=== PATIENT | female | born 1980 | race Caucasian/White ===

== ENCOUNTER 2019-09-22 05:50 | Emergency (ER) | payer BC, SELFPAY ==
[2019-09-22 05:55] VITALS: BP 119/76; PULSE 83; RESP 16; TEMP 36.4; O2SAT 99; BMI 29.2
--- NOTE | 2019-09-22 05:59 | XR_ITS ---
WS: [id number] PORTABLE CHEST HISTORY: loss of consciousness COMPARISON: None available. Lungs are clear and well expanded. No pleural effusion or pneumothorax. Cardiac size: Normal. Mediastinum/Aorta: Normal mediastinum. No osseous abnormality seen. XR/XR chest 1V portable [id number] IMPRESSION: Unremarkable portable chest.
--- NOTE | 2019-09-22 05:59 | W.ED.FALL ---
HPI - Fall General: Chief Complaint: Syncope Stated Complaint: PASSED OUT, HIT HEAD Time Seen by Provider: 09/22/19 05:51 History of Present Illness: HPI Narrative: 39-year-old female got out of bed this morning she felt as if her legs were weak and numb from positional effect. She waited a bit they seem to get a little bit better than it she got up and moved around while she was walking they seem to give out from underneath her she fell and hit her head she has a shallow abrasion-like laceration on the left supraorbital ridge. She vomited once after the fall. No further symptoms. MD complaint: fall Onset (ago): hour(s) (1) Fall from: standing Fall witnessed: no Place fall occurred: home Loss of consciousness: Yes Prolonged down time: no Symptoms prior to fall: dizziness Context: tripped/slipped Location of injury: head Severity: mild Associated symptoms-after fall: Reports lightheadedness; Denies abdominal pain or chest pain Review of Systems Const: Denies: fever, chills, body aches, change in appetite, fatigue or malaise ENMT: Denies: throat pain, ear pain, nasal discharge or nasal congestion Card: Reports: lightheadedness; Denies: chest pain, edema, shortness of breath on exertion or shortness of breath when lying down Resp: Denies: shortness of breath, productive cough or non-productive cough GI: Denies: abdominal pain, nausea, vomiting, vomiting blood, coffee grounds in vomit, diarrhea, constipation, bloating, blood in stool or black tarry stool : Denies: flank pain, difficulty urinating, painful urination, urinary frequency or urinary urgency Skin/Breast: Denies: rash or itching Neuro: Reports: numbness in extremities (resolved now) and weakness in extremities (resolved now) PFSH ED PFSH: Statuses (acute, chronic, etc) shown below reflect problem list status as previously entered and may not be historically accurate Social History Smoking and tobacco status: never smoked Physical Exam Const: COMMON NORMALS: no apparent distress GENERAL APPEARANCE: cooperative and comfortable ORIENTATION/CONSCIOUSNESS: Yes awake, Yes oriented to person, Yes oriented to place and Yes oriented to time HENMT: COMMON NORMALS: normocephalic, hearing grossly normal bilaterally, external ears normal, EAC's normal, TM's normal bilaterally, nasal mucous membranes and turbinates normal, moist oral mucous membranes and oropharynx normal HEAD & SCALP: normocephalic HEAD IMAGES: 1. laceration partial thickness NOSE: nasal mucous membranes and turbinates normal EXTERNAL EAR: Yes external ears normal EXTERNAL AUDITORY CANAL: EAC's normal TYMPANIC MEMBRANE: TM's normal bilaterally Eye: COMMON NORMALS: PERRL, EOMs intact bilaterally, conjunctivae normal and no scleral icterus CONJUNCTIVA: Yes conjunctivae normal PUPIL: Yes PERRL Neck/C-Spine: COMMON NORMALS: full ROM, no lymphadenopathy, supple and no JVD Lymph: LYMPHATIC: no lymphadenopathy noted and no lymphedema noted Resp: COMMON NORMALS: normal respiratory effort, no retractions, no use of accessory muscles and clear to auscultation bilaterally AUSCULTATION: clear to auscultation bilaterally Cardio: COMMON NORMALS: no JVD, regular rate, regular rhythm and no murmurs RATE: regular rate RHYTHM: regular rhythm Extremity: COMMON NORMALS: normal to inspection, normal capillary refill, no clubbing, cyanosis or edema, no calf tenderness and no pedal edema Neuro: SENSORIUM/ORIENTATION: Yes oriented to person, Yes oriented to place and Yes oriented to time Skin: COMMON NORMALS: no rashes or lesions noted GENERAL SKIN EXAM: no rashes or lesions noted Course ED course: Patient doing well no focal neurologic deficits. Laceration repaired by PA see the note. Discharge home with case management get her primary care doctor follow-up in 5 to 7 days for suture removal Vital Signs: Vital signs: Vital Signs Temperature 97.5 F L 09/22/19 05:55 Pulse Rate 75 09/22/19 08:05 Respiratory Rate 17 09/22/19 08:05 Blood Pressure 100/59 09/22/19 08:05 Pulse Oximetry 97 09/22/19 08:05 MDM - Fall Lab Data: Labs: Lab Results 09/22/19 09/22/19 09/22/19 Range/Units 06:00 06:27 06:27 WBC 10.5 H (4.0-10.0) 10^3/ uL RBC 4.55 (4.1-5.3) 10^6/u L Hgb 13.3 (11.5-15.3) g/dL Hct 41.6 (37.0-47.0) % MCV 91.4 (81-99) fL MCH 29.2 (28.0-34.0) pg MCHC 32.0 (30.0-36.0) g/dL RDW 12.4 (12.1-15.1) % Plt Count 161 (130-400) 10^3/c mm MPV 13.3 H (7.4-10.4) fL Neut % (Auto) 80.7 % Lymph % (Auto) 12.4 % [place] % (Auto) 5.5 % Eos % (Auto) 0.7 % Baso % (Auto) 0.3 % Neut # (Auto) 8.5 H (1.8-7.7) 10^3/u L Lymph # (Auto) 1.3 (0.8-4.8) 10^3/u L [place] # (Auto) 0.6 (0.2-0.9) 10^3/u L Eos # (Auto) 0.1 (0.0-0.8) 10^3/u L Baso # (Auto) 0.0 (0.0-0.1) 10^3/u L Nucleated RBC % (a uto) 0 % Nucleated RBCs # 0.0 /100WBC Sodium 141 (136-145) mmol/L Potassium 4.3 (3.5-5.1) mmol/L Chloride 106 (98-107) mmol/L Carbon Dioxide 23 (22-29) mmol/L Anion Gap 16.3 (5-19) BUN 12 (6-20) mg/dL Creatinine 0.9 (0.5-0.9) mg/dL GFR Calculation 69.7 L (90-130) mL/min Glucose 114 H (74-109) mg/dL Calcium 9.3 (8.6-10.0) mg/Dl Total Bilirubin 0.2 (0.15-1.2) mg/dL AST 21 (0-32) U/L ALT 12 (0-33) U/L Alkaline Phosphata se 68 (35-105) IU/L Total Protein 7.3 (6.6-8.7) g/dL Albumin 4.5 (3.5-5.2) g/dL Globulin 2.8 (1.3-4.6) g/dL Urine Color Yellow (Yellow) Urine Appearance Clear (CLEAR) Urine pH 5.0 (5-7) Ur Specific Gravit y 1.030 (1.005-1.030) Urine Protein Neg (Negative) Urine Glucose (UA) Norm (Normal) Urine Ketones 1+ H (Negative) Urine Occult Blood Neg (Negative) Urine Nitrate Negative (Negative) Urine Bilirubin Neg (NEGATIVE) Urine Urobilinogen Norm (Negative) mg/dL Ur Leukocyte Rosalba ase Trace H (Negative) Urine RBC None (0-2) /hpf Urine WBC 0-4 H (0-5) /hpf Ur Squamous Epith Cells None (0-5) Amorphous Sediment 4+ Urine Bacteria 3+ H (NONE) Imaging Data^: CT Head: Radiologist's impression: PROCEDURE INFORMATION: Exam: CT Head Without Contrast Exam date and time: 09/22/2019 7:30 AM Age: 39 years old Clinical indication: Injury or trauma; Patient HX: Syncope with fall at home this a. M. Bruising to left orbit with laceration to left eyebrow that has been sutured. ; Additional info: Loc after fall TECHNIQUE: Imaging protocol: Computed tomography of the head without contrast. Total DLP: 765.49 mGy-cm Radiation optimization: All CT scans at this facility use at least one of these dose optimization techniques: automated exposure control; mA and/or kV adjustment per patient size (includes targeted exams where dose is matched to clinical indication); or iterative reconstruction. COMPARISON: No relevant prior studies available. FINDINGS: Brain: Normal. No hemorrhage. Unremarkable white matter. No mass effect. Ventricles: Normal. No ventriculomegaly. Bones/joints: Unremarkable. No acute fracture. Sinuses: Visualized sinuses are unremarkable. No fluid levels. Mastoid air cells: Visualized mastoid air cells are well aerated. Orbits: Mild LEFT preseptal periorbital soft tissue swelling. Soft tissues: Unremarkable. CT/CT head wo con* [id number] IMPRESSION: No acute intracranial injury identified. EKG Data^: EKG 1: EKG interpretation date: 09/22/19 EKG interpretation time: 06:25 Interpretation: NSR rate - 69, normal NE and QT segments no ST segment changes, no acute ischemia Discharge Plan Discharge Patient Disposition: Home, Self-Care Clinical Impression: Fall, Laceration of eyebrow and forehead Condition: Stable Discharge Orders: Discharge Order (Routine); Ordered 09/22/19 Ordered By: Ge Lagunas Discharge Diet: Usual diet Discharge Activity: Resume usual activity Activity Restrictions/Additional Instructions: Follow up for wound care and suture removal in 7 days at one of the local walkin clinics. Discharge Date/Time: 09/22/19 08:06 Coding Level of Care Code ED [employer] [place] Technician for Inocencia Santos Exam Problem Focused NIH stroke score NIHSS Level Of Consciousness - 1a: 0 Level Of Consciousness Questions - 1b: Both Correct Level Of Consciousness Commands - 1c: Both Correct Best Gaze - 2: Normal Visual Darby - 3: No Visual Loss Facial Palsy - 4: Normal Motor Arm Right - 5: No Drift Motor Arm Left - 5: No Drift Motor Leg Right - 6: No Drift Motor Leg Left - 6: No Drift Limb Ataxia - 7: Absent Sensory - 8: Normal Best Language - 9: No Aphasia Dysarthia - 10: Normal Extinction And Inattention - 11: 0 Score Total Score: 0
--- NOTE | 2019-09-22 06:05 | ECG_ITS ---
Measurements Intervals [place] Rate: 69 P: 62 TX: 149 QRS: 57 QRSD: 85 T: 30 QT: 372 QTc: 400 SINUS RHYTHM WITH SINUS ARRHYTHMIA No previous ECG available for comparison Electronically Signed On 09-22-2019 19:25:43 PRODUCTIVITY ENGINEER by Yolanda Zavala M.D. [id number]
[2019-09-22 06:33] VITALS: BP 101/66; BP 109/71; BP 110/76
[2019-09-22 06:33] LABS: Basophils % 0.3 %; Eosinophils # 0.1 10^3/uL (0.0-0.8); Eosinophils % 0.7 %; Hematocrit 41.6 % (37.0-47.0); Hemoglobin 13.3 g/dL (11.5-15.3); Lymphocytes # 1.3 10^3/uL (0.8-4.8); Lymphocytes % 12.4 %; Mean Corpuscular Hemoglobin 29.2 pg (28.0-34.0); Mean Corpuscular Volume 91.4 fL (81-99); Mean Platelet Volume 13.3 fL (7.4-10.4); Monocytes # 0.6 10^3/uL (0.2-0.9); Monocytes % 5.5 %; Neutrophils # 8.5 10^3/uL (1.8-7.7); Neutrophils % 80.7 %; Nucleated Red Blood Cells % 0 %; Platelet Count 161 10^3/cmm (130-400); Red Blood Count 4.55 10^6/uL (4.1-5.3); Red Cell Distribution Width 12.4 % (12.1-15.1); White Blood Count 10.5 10^3/uL (4.0-10.0)
[2019-09-22] MEDS: sodium chloride 0.9% 1,000 ML 999 ML IV (06:42)
[2019-09-22 06:48] LABS: Alanine Aminotransferase 12 U/L (0-33); Albumin Level 4.5 g/dL (3.5-5.2); Alkaline Phosphatase 68 IU/L (35-105); Anion Gap 16.3 (5-19); Blood Urea Nitrogen 12 mg/dL (6-20); Calcium 9.3 mg/Dl (8.6-10.0); Carbon Dioxide 23 mmol/L (22-29); Chloride 106 mmol/L (98-107); Globulin 2.8 g/dL (1.3-4.6); Glomerular Filtration Rate 69.7 mL/min (90-130); Glucose 114 mg/dL (74-109); Potassium 4.3 mmol/L (3.5-5.1); Sodium 141 mmol/L (136-145); Total Bilirubin 0.2 mg/dL (0.15-1.2); Total Protein 7.3 g/dL (6.6-8.7)
[2019-09-22 06:50] LABS: Slide Review Slide Review Perform
[2019-09-22 06:53] LABS: Add Urine Microscopic? YES; Bilirubin Urine Neg (NEGATIVE); Blood Urine Neg (Negative); Glucose Urine UA Norm (Normal); Ketones Urine 1+ (Negative); Leukocyte Esterase Urine Trace (Negative); Nitrate Urine Negative (Negative); Protein Urine Neg (Negative); Urine Appearance Clear (CLEAR); Urine Color Yellow (Yellow); Urobilinogen Urine Norm (Negative)
[2019-09-22 06:58] LABS: Aspartate Amino Transferase 21 U/L (0-32)
[2019-09-22 07:03] LABS: Add Urine Culture? No; Amorphous Sediment Urine 4+; Bacteria Urine 3+; WBC Urine 0-4 /hpf (0-5)
--- NOTE | 2019-09-22 07:28 | CTR_ITS ---
PROCEDURE INFORMATION: Exam: CT Head Without Contrast Exam date and time: 09/22/2019 7:30 AM Age: 39 years old Clinical indication: Injury or trauma; Patient HX: Syncope with fall at home this a. M. Bruising to left orbit with laceration to left eyebrow that has been sutured. ; Additional info: Loc after fall TECHNIQUE: Imaging protocol: Computed tomography of the head without contrast. Total DLP: 765.49 mGy-cm Radiation optimization: All CT scans at this facility use at least one of these dose optimization techniques: automated exposure control; mA and/or kV adjustment per patient size (includes targeted exams where dose is matched to clinical indication); or iterative reconstruction. COMPARISON: No relevant prior studies available. FINDINGS: Brain: Normal. No hemorrhage. Unremarkable white matter. No mass effect. Ventricles: Normal. No ventriculomegaly. Bones/joints: Unremarkable. No acute fracture. Sinuses: Visualized sinuses are unremarkable. No fluid levels. Mastoid air cells: Visualized mastoid air cells are well aerated. Orbits: Mild LEFT preseptal periorbital soft tissue swelling. Soft tissues: Unremarkable. CT/CT head wo con* [id number] IMPRESSION: No acute intracranial injury identified. Radiation Dose CTDIVOL = (mGy): DLP = 765.49 (mGy-cm)
--- NOTE | 2019-09-22 07:38 | ED_ITS ---
HPI - Syncope General: Chief Complaint: Syncope Stated Complaint: PASSED OUT, HIT HEAD Time Seen by Provider: 09/22/19 05:51 [facility] PFSH: Statuses (acute, chronic, etc) shown below reflect problem list status as previously entered and may not be historically accurate Social History Smoking and tobacco status: never smoked Procedures Laceration Laceration 1: Site: face (left brow) Side (If applicable): left Size (cm): 3.5 Description: linear Depth: simple, single layer Local Anesthetic: lidocaine 1% and with epi Amount of anesthesia used (mL): 2 Pre-repair: wound explored and irrigated extensively Skin layer closed with: vicryl Size (cm): 6-0 Number of sutures: 7 Technique: simple, interrupted Subcutaneous layer closed with: other (patient tolerated procedure well, cooperative) Course Vital Signs: Vital signs: Vital Signs Temperature 97.5 F L 09/22/19 05:55 Pulse Rate 83 09/22/19 05:55 Respiratory Rate 16 09/22/19 05:55 Blood Pressure 101/66 09/22/19 06:33 Pulse Oximetry 99 09/22/19 05:55 MDM - Syncope Lab Data: Labs: Lab Results 09/22/19 09/22/19 09/22/19 Range/Units 06:00 06:27 06:27 WBC 10.5 H (4.0-10.0) 10^3/ uL RBC 4.55 (4.1-5.3) 10^6/u L Hgb 13.3 (11.5-15.3) g/dL Hct 41.6 (37.0-47.0) % MCV 91.4 (81-99) fL MCH 29.2 (28.0-34.0) pg MCHC 32.0 (30.0-36.0) g/dL RDW 12.4 (12.1-15.1) % Plt Count 161 (130-400) 10^3/c mm MPV 13.3 H (7.4-10.4) fL Neut % (Auto) 80.7 % Lymph % (Auto) 12.4 % [place] % (Auto) 5.5 % Eos % (Auto) 0.7 % Baso % (Auto) 0.3 % Neut # (Auto) 8.5 H (1.8-7.7) 10^3/u L Lymph # (Auto) 1.3 (0.8-4.8) 10^3/u L [place] # (Auto) 0.6 (0.2-0.9) 10^3/u L Eos # (Auto) 0.1 (0.0-0.8) 10^3/u L Baso # (Auto) 0.0 (0.0-0.1) 10^3/u L Nucleated RBC % (a uto) 0 % Nucleated RBCs # 0.0 /100WBC Sodium 141 (136-145) mmol/L Potassium 4.3 (3.5-5.1) mmol/L Chloride 106 (98-107) mmol/L Carbon Dioxide 23 (22-29) mmol/L Anion Gap 16.3 (5-19) BUN 12 (6-20) mg/dL Creatinine 0.9 (0.5-0.9) mg/dL GFR Calculation 69.7 L (90-130) mL/min Glucose 114 H (74-109) mg/dL Calcium 9.3 (8.6-10.0) mg/Dl Total Bilirubin 0.2 (0.15-1.2) mg/dL AST 21 (0-32) U/L ALT 12 (0-33) U/L Alkaline Phosphata se 68 (35-105) IU/L Total Protein 7.3 (6.6-8.7) g/dL Albumin 4.5 (3.5-5.2) g/dL Globulin 2.8 (1.3-4.6) g/dL Urine Color Yellow (Yellow) Urine Appearance Clear (CLEAR) Urine pH 5.0 (5-7) Ur Specific Gravit y 1.030 (1.005-1.030) Urine Protein Neg (Negative) Urine Glucose (UA) Norm (Normal) Urine Ketones 1+ H (Negative) Urine Occult Blood Neg (Negative) Urine Nitrate Negative (Negative) Urine Bilirubin Neg (NEGATIVE) Urine Urobilinogen Norm (Negative) mg/dL Ur Leukocyte Rosalba ase Trace H (Negative) Urine RBC None (0-2) /hpf Urine WBC 0-4 H (0-5) /hpf Ur Squamous Epith Cells None (0-5) Amorphous Sediment 4+ Urine Bacteria 3+ H (NONE) Discharge Plan Discharge Patient Disposition: Home, Self-Care Clinical Impression: Fall, Laceration of eyebrow and forehead Condition: Stable Discharge Orders: Discharge Order (Routine); Ordered 09/22/19 Ordered By: Ge Lagunas Discharge Diet: Usual diet Discharge Activity: Resume usual activity Activity Restrictions/Additional Instructions: Follow up for wound care and suture removal in 7 days at one of the local walkin clinics. Coding Level of Care Code ED Pollution Control Chemist for Inocencia Santos
[2019-09-22 08:05] VITALS: BP 100/59; PULSE 75; RESP 17; O2SAT 97
--- NOTE | 2019-09-23 13:03 | DCPLANNER ---
manager new product had message to speak with patient about getting established with a primary care physician. manager new product called patient, unable to speak with patient at this time, a voicemail was left for patient to return medical case worker phone call.
== END 2019-09-22 08:06 | disposition home or self-care (01) ==
PROVIDERS: Emergency Provider Family Medicine
DX: S01.112A Laceration without foreign body of left eyelid and periocular area, initial encounter (principal); S01.81XA Laceration without foreign body of other part of head, initial encounter; W19.XXXA Unspecified fall, initial encounter; Y92.009 Unspecified place in unspecified non-institutional (private) residence as the place of occurrence of the external cause
CPT/HCPCS: 12013; 36415; 70450; 71045; 80053; 81003; 85025; 93005; 96360; 99283; A9270; J7030

== ENCOUNTER → 2020-12-01 11:04 | Outpatient (BNVA) | payer OTHER, SELFPAY | PROVIDERS: Visit Provider Nurse Practitioner Women's Health | DX: Z01.419 Encounter for gynecological examination (general) (routine) without abnormal findings (principal); Z12.39 Encounter for other screening for malignant neoplasm of breast | CPT/HCPCS: 88175 ==

== ENCOUNTER 2020-12-14 15:10 | Outpatient (CLI) | payer OTHER, SELFPAY ==
--- NOTE | 2020-12-14 15:30 | MM_ITS ---
WS: [id number] BILATERAL DIGITAL SCREENING MAMMOGRAPHY WITH CAD CLINICAL INFORMATION: Z12.39 - Encounter for other screening for malignant neoplasm of breast HISTORY: Screening mammogram. No current complaints. COMPARISON: None. TECHNIQUE: Bilateral CC and MLO views. FINDINGS: Scattered fibroglandular densities bilaterally. No suspicious focal mass, asymmetry, calcifications, or architectural distortion. No evidence of malignancy. MM/[place] [id number] IMPRESSION: BI-RADS: 1-Negative FOLLOW UP: 1 Year Follow-up Recommend return to annual screening mammography.
== END 2020-12-14 15:11 | disposition home or self-care (01) ==
LOC: RADSHAW 15:12
PROVIDERS: Visit Provider Nurse Practitioner Women's Health
DX: Z12.31 Encounter for screening mammogram for malignant neoplasm of breast (principal)
CPT/HCPCS: 77067

== ENCOUNTER 2021-04-12 12:19 | Emergency (ER) | payer OTHER, SELFPAY ==
[2021-04-12 12:40] VITALS: BP 127/77; PULSE 87; RESP 14; TEMP 36.8; O2SAT 97; BMI 30.1
[2021-04-12 15:56] VITALS: BP 120/78; PULSE 79; RESP 16; O2SAT 99
--- NOTE | 2021-04-12 16:15 | XR_ITS ---
WS: [id number] Portable AP upright chest, 04/12/2021 Clinical Data: dyspnea/cough Comparison: Portable chest, 09/22/2019. Findings: No nodules, masses or effusions are seen. The heart is normal. The pulmonary vascularity is not increased. No pneumonia or pneumothorax is seen. XR/XR chest 1V portable [id number] Impression: Negative chest.
--- NOTE | 2021-04-12 16:15 | ECG_ITS ---
[facility] Test Date: 2021-04-12 Pat Name: Sallie Watkins Department: Room: Gender: Female Site Lead: : 1980 Requested By: Ge Rucker Order Number: [id number] Reading MD: KALEB CHILDERS Measurements Intervals [place] Rate: 67 P: 61 MN: 151 QRS: 68 QRSD: 80 T: 50 QT: 382 QTc: 405 Interpretive Statements SINUS RHYTHM WITH MARKED SINUS ARRHYTHMIA NONSPECIFIC T-WAVE ABNORMALITY Compared to ECG 09/22/2019 06:25:12 T-wave abnormality now present Electronically Signed On 04-12-2021 22:31:41 CDT by KALEB CHILDERS [id number]
--- NOTE | 2021-04-12 16:16 | CTR_ITS ---
PROCEDURE INFORMATION: Exam: CT Head Without Contrast Exam date and time: 04/12/2021 4:16 PM Age: 40 years old Clinical indication: Pain; Dizziness and syncope and collapse; Headache; Additional info: Fall loss consciousness TECHNIQUE: Imaging protocol: Computed tomography of the head without contrast. Radiation optimization: All CT scans at this facility use at least one of these dose optimization techniques: automated exposure control; mA and/or kV adjustment per patient size (includes targeted exams where dose is matched to clinical indication); or iterative reconstruction. COMPARISON: CT head wo con* [id number] 09/22/2019 7:56 AM RADIATION DOSE METRICS: Total DLP (mGy-cm): 879.67 FINDINGS: Brain: Normal. No hemorrhage. Unremarkable white matter. No mass effect. Cerebral ventricles: No ventriculomegaly. Paranasal sinuses: Visualized sinuses are unremarkable. No fluid levels. Mastoid air cells: Visualized mastoid air cells are well aerated. Bones/joints: Unremarkable. No acute fracture. Soft tissues: Unremarkable. CT/CT head wo con* [id number] IMPRESSION: No acute intracranial abnormality. Radiation Dose CTDIVOL = (mGy): DLP = 879.67 (mGy-cm)
--- NOTE | 2021-04-12 16:16 | W.ED.SYNCOPE ---
HPI - Syncope General: Chief Complaint: Syncope Stated Complaint: Lightheaded, Passed out this morning Time Seen by Provider: 04/12/21 16:03 History of Present Illness: HPI narrative: 40-year-old female presents emergency room complaining of loss of consciousness. Early's morning around 3 AM she woke up she had some mild positional ischemia of her right leg she sat up at the bedside to reestablish circulation it was numb and tingling she went to stand and evidently passed out she said the neck she recalls was she was on the floor she does not recall falling or getting bad up back up she was somewhat lightheaded. She denies any chest pain or shortness of breath she has had episodes like this in the past usually associated with her. She has not had a full medical work-up for them. She has no known history of seizures. She has no history of coronary artery disease she is not diabetic. Patient has had similar episodes in the past. MD complaint: loss of consciousness -: second(s) Prodromal symptoms: lightheaded Context: getting out of bed Injuries sustained associated with event: none Associated symptoms: Deny abdominal pain, chest pain, fever(s), headache(s), lightheadedness, nausea, short of breath, vertigo or weakness History: previous syncopal episode Treatments prior to arrival: none Review of Systems Const: Denies: fever(s) ENMT: Denies: throat pain, ear or mastoid pain, nasal discharge or nasal congestion Card: Denies: chest pain or lightheadedness Resp: Denies: dyspnea, productive cough or non-productive cough GI: Denies: abdominal pain or nausea : Denies: flank pain, difficulty voiding, dysuria, urinary frequency or urinary urgency Skin/Breast: Denies: rash or pruritus Neuro: Denies: headache(s) or vertigo PFSH ED PFSH: Medical History No pertinent past medical history neghx: htn,dm,thyroid,dvt/pe PCP: None Surgical History Hx of wisdom tooth extraction at age 19 Family History Mother Hypertension Thyroid disease Father Hypertension Brother Hypertension Grandmother Colon cancer Maternal--- dx age 70's Paternal--dx age 63 Family/Other Ovarian cancer Paternal Aunt--dx age late 50's Denies family history of Diabetes Hypercholesteremia Breast cancer Uterine cancer Stroke Social History Smoking and tobacco status: never smoked Second hand smoke exposure: No Alcohol intake: never Desire information about alcohol rehabilitation?: No Desire information about substance/drug rehabilitation?: No Female Reproductive History: Date of last menstrual period: 04/07/21 Physical Exam Const: COMMON NORMALS: no acute distress GENERAL APPEARANCE: cooperative and comfortable ORIENTATION/CONSCIOUSNESS: Yes awake, Yes oriented to person, Yes oriented to place and Yes oriented to time HENMT: COMMON NORMALS: normocephalic, atraumatic, hearing grossly normal bilaterally and external ears normal HEAD & SCALP: normocephalic and atraumatic EXTERNAL EAR: Yes external ears normal Eye: COMMON NORMALS: Equal, round and reactive pupils present, EOMs intact bilaterally, conjunctivae normal and no scleral icterus CONJUNCTIVA: Yes conjunctivae normal PUPIL: Yes Equal, round and reactive pupils present Neck/C-Spine: COMMON NORMALS: full ROM, no lymphadenopathy, supple and no JVD Lymph: LYMPHATIC: no lymphadenopathy noted and no lymphedema noted Resp: COMMON NORMALS: normal respiratory effort, No retractions, No use of accessory muscles and clear to auscultation bilaterally AUSCULTATION: clear to auscultation bilaterally Cardio: COMMON NORMALS: no JVD, regular rate, regular rhythm and No murmurs present (Cardio) RATE: regular rate RHYTHM: regular rhythm GI: COMMON NORMALS: Soft to palpation and No hepatosplenomegaly present AUSCULTATION: Yes normoactive bowel sounds PALPATION: Yes Soft to palpation, No Tenderness to palpation present (GI), No Guarding due to palpation present (GI) and Yes No hepatosplenomegaly present Extremity: COMMON NORMALS: normal to inspection, capillary refill normal, no clubbing, cyanosis or edema, no calf tenderness and no pedal edema Neuro: SENSORIUM/ORIENTATION: Yes oriented to person, Yes oriented to place and Yes oriented to time Skin: COMMON NORMALS: no rashes or lesions noted GENERAL SKIN EXAM: no rashes or lesions noted Course Vital Signs: Vital signs: Vital Signs Temperature 98.2 F 04/12/21 12:40 Pulse Rate 71 04/12/21 18:10 Respiratory Rate 16 04/12/21 18:10 Blood Pressure 101/65 04/12/21 18:10 Pulse Oximetry 100 04/12/21 18:10 MDM - Syncope MDM Narrative: Medical decision making narrative: Patient did not have any postictal-like symptoms does not sound that she had a seizure sounds more like a vasovagal or orthostatic event she has had these before in the past we will set her up for carotids echo 24-hour Holter and EEG. follow-up with primary care if not improving return or for recurrence return. Lab Data: Labs: Lab Results 04/12/21 04/12/21 04/12/21 Range/Units 16:36 16:36 16:36 WBC 6.8 (4.0-10.0) 10^3/ uL RBC 4.61 (4.1-5.3) 10^6/u L Hgb 13.1 (11.5-15.3) g/dL Hct 40.6 (37.0-47.0) % MCV 88.1 (81-99) fL MCH 28.4 (28.0-34.0) pg MCHC 32.3 (30.0-36.0) g/dL RDW 12.3 (12.1-15.1) % Plt Count 193 (130-400) 10^3/c mm MPV 13.2 H (7.4-10.4) fL Neut % (Auto) 61.6 % Lymph % (Auto) 29.2 % [place] % (Auto) 6.4 % Eos % (Auto) 2.1 % Baso % (Auto) 0.6 % Neut # (Auto) 4.16 (1.8-7.7) 10^3/u L Lymph # (Auto) 2.0 (0.8-4.8) 10^3/u L [place] # (Auto) 0.4 (0.2-0.9) 10^3/u L Eos # (Auto) 0.1 (0.0-0.8) 10^3/u L Baso # (Auto) 0.0 (0.0-0.1) 10^3/u L Nucleated RBC % (a uto) 0 % Nucleated RBCs # 0.0 /100WBC Sodium 141 (136-145) mmol/L Potassium 4.3 (3.5-5.1) mmol/L Chloride 106 (98-107) mmol/L Carbon Dioxide 26 (22-29) mmol/L Anion Gap 13.3 (5-19) BUN 10 (6-20) mg/dL Creatinine 0.7 (0.5-0.9) mg/dL GFR Calculation 92.7 (90-130) mL/min Glucose 79 (65-115) mg/dL Calculated Osmolal ity 290 (285-295) mOsm/k g Calcium 8.7 (8.5-10.5) mg/dL Total Bilirubin 0.2 (0.15-1.2) mg/dL AST 19 (0-32) U/L ALT 16 (0-33) U/L Alkaline Phosphata se 65 (35-105) IU/L Creatine Kinase 41 (26-192) U/L Troponin T Baselin e 6 (0-10) ng/L Total Protein 6.7 (6.6-8.7) g/dL Albumin 4.2 (3.5-5.2) g/dL Globulin 2.5 (1.3-4.6) g/dL Urine Color (Yellow) Urine Appearance (CLEAR) Urine pH (5-7) Ur Specific Gravit y (1.005-1.030) Urine Protein (Negative) Urine Glucose (UA) (Normal) Urine Ketones (Negative) Urine Blood (Negative) Urine Nitrate (Negative) Urine Bilirubin (Negative) Urine Urobilinogen (Negative) mg/dL Ur Leukocyte Rosalba ase (Negative) 04/12/21 Range/Units 17:28 WBC (4.0-10.0) 10^3/ uL RBC (4.1-5.3) 10^6/u L Hgb (11.5-15.3) g/dL Hct (37.0-47.0) % MCV (81-99) fL MCH (28.0-34.0) pg MCHC (30.0-36.0) g/dL RDW (12.1-15.1) % Plt Count (130-400) 10^3/c mm MPV (7.4-10.4) fL Neut % (Auto) % Lymph % (Auto) % [place] % (Auto) % Eos % (Auto) % Baso % (Auto) % Neut # (Auto) (1.8-7.7) 10^3/u L Lymph # (Auto) (0.8-4.8) 10^3/u L [place] # (Auto) (0.2-0.9) 10^3/u L Eos # (Auto) (0.0-0.8) 10^3/u L Baso # (Auto) (0.0-0.1) 10^3/u L Nucleated RBC % (a uto) % Nucleated RBCs # /100WBC Sodium (136-145) mmol/L Potassium (3.5-5.1) mmol/L Chloride (98-107) mmol/L Carbon Dioxide (22-29) mmol/L Anion Gap (5-19) BUN (6-20) mg/dL Creatinine (0.5-0.9) mg/dL GFR Calculation (90-130) mL/min Glucose (65-115) mg/dL Calculated Osmolal ity (285-295) mOsm/k g Calcium (8.5-10.5) mg/dL Total Bilirubin (0.15-1.2) mg/dL AST (0-32) U/L ALT (0-33) U/L Alkaline Phosphata se (35-105) IU/L Creatine Kinase (26-192) U/L Troponin T Baselin e (0-10) ng/L Total Protein (6.6-8.7) g/dL Albumin (3.5-5.2) g/dL Globulin (1.3-4.6) g/dL Urine Color Yellow (Yellow) Urine Appearance Clear (CLEAR) Urine pH 6 (5-7) Ur Specific Gravit y 1.015 (1.005-1.030) Urine Protein Neg (Negative) Urine Glucose (UA) Norm (Normal) Urine Ketones Negative (Negative) Urine Blood Neg (Negative) Urine Nitrate Negative (Negative) Urine Bilirubin Neg (Negative) Urine Urobilinogen Norm (Negative) mg/dL Ur Leukocyte Rosalba ase Negative (Negative) Discharge Plan Discharge Patient Disposition: Home Clinical Impression: Syncope Condition: Stable Prescriptions: No Action Zyrtec 10 mg Tablet 10 mg PO DAILY PRN (Reason: Allergy Symptoms) RF: 0 Vitamin C 500 mg Tablet 500 mg PO EVERY OTHER DAY RF: 0 Aleve 220 mg Tablet 220 - 440 mg PO PRN RF: 0 magnesium oxide 400 mg magnesium Tablet 400 mg PO DAILY RF: 0 Juice Plus 6 cap PO DAILY RF: 0 Vitamin B-12 1 tab PO DAILY RF: 0 Vitamin D3 1 cap PO DAILY RF: 0 Discharge Orders: Discharge ED (Routine); Ordered 04/12/21 Ordered By: Ge Lagunas Referrals: Margaret Rogers FNP [Primary Care Provider] - Patient Instructions: Opioid Safety Activity Restrictions/Additional Instructions: His management will call to make an appointment for you to have an echocardiogram 48-hour Holter monitor and an EEG Coding Level of Care Code 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
[2021-04-12 16:52] LABS: Basophils % 0.6 %; Eosinophils # 0.1 10^3/uL (0.0-0.8); Eosinophils % 2.1 %; Hematocrit 40.6 % (37.0-47.0); Hemoglobin 13.1 g/dL (11.5-15.3); Lymphocytes % 29.2 %; Mean Corpuscular HGB Conc 32.3 g/dL (30.0-36.0); Mean Corpuscular Hemoglobin 28.4 pg (28.0-34.0); Mean Corpuscular Volume 88.1 fL (81-99); Mean Platelet Volume 13.2 fL (7.4-10.4); Monocytes # 0.4 10^3/uL (0.2-0.9); Monocytes % 6.4 %; Neutrophils # 4.16 10^3/uL (1.8-7.7); Neutrophils % 61.6 %; Nucleated Red Blood Cells % 0 %; Platelet Count 193 10^3/cmm (130-400); Red Blood Count 4.61 10^6/uL (4.1-5.3); Red Cell Distribution Width 12.3 % (12.1-15.1); White Blood Count 6.8 10^3/uL (4.0-10.0)
[2021-04-12] MEDS: sodium chloride 0.9% 1,000 ML 999 ML IV (17:21)
[2021-04-12 17:29] LABS: Troponin(5th) Baseline 6 ng/L (0-10)
[2021-04-12 17:30] LABS: Alanine Aminotransferase 16 U/L (0-33); Albumin Level 4.2 g/dL (3.5-5.2); Alkaline Phosphatase 65 IU/L (35-105); Anion Gap 13.3 (5-19); Aspartate Amino Transferase 19 U/L (0-32); Blood Urea Nitrogen 10 mg/dL (6-20); Calcium 8.7 mg/dL (8.5-10.5); Carbon Dioxide 26 mmol/L (22-29); Chloride 106 mmol/L (98-107); Creatine Phosphokinase 41 U/L (26-192); Globulin 2.5 g/dL (1.3-4.6); Glomerular Filtration Rate 92.7 mL/min (90-130); Glucose 79 mg/dL (65-115); Osmolality Calculated 290 mOsm/kg (285-295); Potassium 4.3 mmol/L (3.5-5.1); Sodium 141 mmol/L (136-145); Total Bilirubin 0.2 mg/dL (0.15-1.2); Total Protein 6.7 g/dL (6.6-8.7)
[2021-04-12 17:31] VITALS: BP 79/57; PULSE 91; RESP 18; O2SAT 91
[2021-04-12 17:44] LABS: Add Urine Microscopic? NO; Charge for UA Resulting for Rev
[2021-04-12 17:48] LABS: Slide Review Slide Review Perform
[2021-04-12 18:09] LABS: Bilirubin Urine Neg (Negative); Blood Urine Neg (Negative); Glucose Urine UA Norm (Normal); Ketones Urine Negative (Negative); Leukocyte Esterase Urine Negative (Negative); Nitrate Urine Negative (Negative); Protein Urine Neg (Negative); Specific Gravity, Urine 1.015 (1.005-1.030); Urine Appearance Clear (CLEAR); Urine Color Yellow (Yellow); Urobilinogen Urine Norm (Negative); pH Urine 6 (5-7)
[2021-04-12 18:10] VITALS: BP 101/65; PULSE 71; RESP 16; O2SAT 100
--- NOTE | 2021-04-12 22:15 | ECG_ITS ---
[facility] Test Date: 2021-04-12 Pat Name: Sallie Watkins Department: Room: Gender: Female Refuse Collector: : 1980 Requested By: Ge Rucker Order Number: [id number] Reading MD: KALEB CHILDERS Measurements Intervals [place] Rate: 69 P: 62 VT: 153 QRS: 68 QRSD: 81 T: 53 QT: 386 QTc: 414 Interpretive Statements SINUS RHYTHM WITH SINUS ARRHYTHMIA NONSPECIFIC T-WAVE ABNORMALITY Compared to ECG 04/12/2021 17:16:45 No significant changes Electronically Signed On 04-12-2021 22:33:13 CDT by KALEB CHILDERS [email or web address] general hospitalAngiocrine Biosciencetrihealth bethesda butler hospitalCereSoft/store/[id number]
--- NOTE | 2021-04-13 15:13 | DCPLANNER ---
land leases and rentals manager had message to schedule the following out patient tests for patient. A 48 hour holter monitor, an echo cardiogram, and an EEG. land leases and rentals manager faxed orders to heart care, centralized scheduling and Dr. Lee office. Each department or clinic will call patient with appointment information.
--- NOTE | 2021-04-27 13:43 | DCPLANNER ---
Patient had an EEG scheduled for 04.25.21 - patient did attend appointment.
--- NOTE | 2021-05-02 15:20 | DCPLANNER ---
Patient has an appointment at heart care for a 48 hour halter monitor at 2:00, clinic will call patient with appointment information.
--- NOTE | 2021-05-11 12:00 | DCPLANNER ---
Patient had a follow up appointment scheduled for 05.02.21 with heart care for a 48 hour holter monitor - patient did attend.
--- NOTE | 2021-05-20 15:28 | DCPLANNER ---
Patient had a follow up appointment scheduled for an outpatient echo for 05.13.21 - patient did attend appointment.
== END 2021-04-12 18:10 | disposition home or self-care (01) ==
PROVIDERS: Emergency Provider Family Medicine; PCP Nurse Practitioner
DX: R55 Syncope and collapse (principal)
CPT/HCPCS: 70450; 71045; 80053; 81003; 82550; 84484; 85025; 93005; 96360; 96361; 99284; J7030

== ENCOUNTER → 2021-04-25 14:47 | Outpatient (BNVA) | payer OTHER, SELFPAY | PROVIDERS: PCP Nurse Practitioner; Referring Provider Family Medicine; Visit Provider Specialist | DX: R55 Syncope and collapse (principal) | CPT/HCPCS: 95816 ==

== ENCOUNTER → 2021-05-02 15:35 | Outpatient (BNVA) | payer OTHER, SELFPAY | PROVIDERS: PCP Nurse Practitioner; Referring Provider Nurse Practitioner; Visit Provider Nurse Practitioner | DX: R55 Syncope and collapse (principal); R20.2 Paresthesia of skin; R29.2 Abnormal reflex | CPT/HCPCS: 99204 ==

== ENCOUNTER 2021-05-13 07:09 | Outpatient (CLI) | payer OTHER, SELFPAY ==
--- NOTE | 2021-05-13 07:15 | USCV_ITS ---
Sallie Watkins Age: 40 Gender: F : 1980 Exam Date: 05/13/2021 07:37 Ordering Phys: Ge Lagunas DO Technologist: Mamie Haley Exam Location: [facility] [place] Indication: SYNCOPAL EPISODE BP: / HR: 95 Rhythm: Sinus Technical Quality: Good MEASUREMENTS (Male / Female) Normal Values 2D ECHO LV Diastolic Diameter PLAX 3.6 cm 4.2 - 5.9 / 3.9 - 5.3 cm LV Systolic Diameter PLAX 1.8 cm IVS Diastolic Thickness 1.0 cm 0.6 - 1.0 / 0.6 - 0.9 cm IVS Systolic Thickness 1.6 cm LVPW Diastolic Thickness 1.1 cm 0.6 - 1.0 / 0.6 - 0.9 cm LVPW Systolic Thickness 1.9 cm LVOT Diameter 2.0 cm LV Ejection Fraction 2D Teich 82.6 % LV Ejection Fraction MOD 2C 71.7 % LV Ejection Fraction 2C AL 72.3 % LA Diameter 1.9 cm LA Width 3.0 cm LA Height 3.5 cm RA Width 3.3 cm RA Height 3.9 cm Aorta at Sinotubular Diameter 3.1 cm DOPPLER AV Peak Velocity 124.0 cm/s LVOT Peak Velocity 100.0 cm/s AV Area Cont Eq vti 2.6 cm squared AV Area Cont Eq pk 2.6 cm squared MV Peak Velocity 103.0 cm/s MV Area PHT 5.0 cm squared Mitral E to A Ratio 0.9 MV E' Velocity 46.5 cm/s Mitral E to MV E' Ratio 7.5 Mitral E to LV E' Lateral Ratio 6.3 Mitral E to LV E' Septal Ratio 9.0 PV Peak Velocity 94.0 cm/s FINDINGS Left Ventricle Normal left ventricular cavity size. Normal left ventricular systolic function. No regional wall motion abnormalities. Left ventricular ejection fraction is estimated at 65 %. Grade I/IV diastolic dysfunction (abnormal relaxation filling pattern), normal to mildly elevated filling pressures. Right Ventricle The right ventricle is normal in size and function. Right Atrium The right atrium is normal in size. Left Atrium The left atrium is normal in size. Mitral Valve Structurally normal mitral valve without significant stenosis or prolapse. There is no mitral regurgitation. Aortic Valve Mild aortic valve calcification. No aortic valve stenosis. Trace aortic valve regurgitation. Tricuspid Valve Trace tricuspid valve regurgitation. Pulmonic Valve Structurally normal pulmonic valve without significant stenosis. There is no pulmonic regurgitation. Pericardium Normal pericardium without effusion. Aorta Normal ascending aorta dimension. CONCLUSIONS 1-Normal left ventricular cavity size. Normal left ventricular systolic function. No regional wall motion abnormalities. Left ventricular ejection fraction is estimated at 65 %. Grade I/IV diastolic dysfunction (abnormal relaxation filling pattern), normal to mildly elevated filling pressures. 2-Mild aortic valve calcification. No aortic valve stenosis. Trace aortic valve regurgitation. 3-Trace tricuspid valve regurgitation. 4-Structurally normal mitral valve without significant stenosis or prolapse. There is no mitral regurgitation. 5-There is no pericardial effusion. 6-Right atrial pressure is around 5 mm of mercury. 7-There are no prior echocardiogram studies to compare. Patti Fournier MD (Electronically Signed) Final Date: 13 May 2021 15:57 S
== END 2021-05-13 07:10 | disposition home or self-care (01) ==
PROVIDERS: PCP Nurse Practitioner; Visit Provider Family Medicine
DX: R55 Syncope and collapse (principal); I08.2 Rheumatic disorders of both aortic and tricuspid valves
CPT/HCPCS: 93306

== ENCOUNTER → 2021-05-31 07:52 | Outpatient (BNVA) | payer OTHER, SELFPAY | PROVIDERS: PCP Nurse Practitioner; Visit Provider Specialist | DX: R40.20 Unspecified coma | CPT/HCPCS: 95816 ==

== ENCOUNTER 2021-07-27 07:43 | Outpatient (CLI) | payer OTHER, SELFPAY ==
--- NOTE | 2021-07-27 07:46 | MR_ITS ---
WS: [id number] MRI HEAD WITH CONTRAST TECHNIQUE: Sagittal T1, T2 axial, T2 axial FLAIR, axial susceptibility weighted imaging, axial diffus ion weighted images, and coronal T2 images were obtained. Pre and post-T1 axial and post T1 coronal i mages. ADC and FSPGR images. CLINICAL INFORMATION: R41.82 - Altered mental status, unspecified COMPARISON: CT head April 12, 2021 FINDINGS: No evidence of restricted diffusion to suggest acute ischemia. Ventricular system and basal cisterns are patent. No suspicious intracranial signal abnormalities. Normal mathias-white differentiation. Yulissa l posterior fossa. Normal vascular flow voids at the skull base. No extra axial fluid collections. No evidence of mass or mass effect. Paranasal sinuses and mastoid air cells are well aerated. No hemosiderin on the susceptibly weighted images. Normal optic chiasm and pituitary infundibulum. Temporal lobes and hippocampal formations are normal in appearance. No abnormal gadolinium enhancement. Normal normal dural venous sinuses. Normal cavernous sinuses and Meckel's cave. MR/MR head wo/w con [id number] IMPRESSION: 1. No evidence of restricted diffusion to suggest acute ischemia. 2. No suspicious intracranial signal abnormalities. 3. No abnormal intracranial enhancement. 4. No hemosiderin on susceptibly weighted images. 5. Temporal lobes and hippocampal formations are normal. 6. No abnormal gadolinium enhancement.
[2021-07-27] MEDS: gadobenate dimeglumine 20 mL vial IV (08:27)
== END 2021-07-27 07:44 | disposition home or self-care (01) ==
LOC: RADSHAW 07:45
PROVIDERS: PCP Nurse Practitioner; Visit Provider Nurse Practitioner
DX: R41.82 Altered mental status, unspecified (principal)
CPT/HCPCS: 70553; A9577

== ENCOUNTER 2023-01-25 11:23 | Outpatient (CLI) | payer OTHER, SELFPAY ==
--- NOTE | 2023-01-25 11:32 | MM_ITS ---
WS: [id number] BILATERAL 3D TOMOSYNTHESIS DIGITAL SCREENING MAMMOGRAM WITH CAD CLINICAL INFORMATION: Z12.39 - Encounter for other screening for malignant neop... HISTORY: Screening mammogram. No current complaints. COMPARISON: 2020 TECHNIQUE: Bilateral CC and MLO views. FINDINGS: Scattered fibroglandular densities bilaterally. No suspicious focal mass, asymmetry, calcifications, or architectural distortion. No evidence of malignancy. A few incidental punctate calcifications LEFT breast. MM/[place] [id number] IMPRESSION: BI-RADS: 2-Benign FOLLOW UP: 1 Year Follow-up Recommend return to annual screening mammography.
== END 2023-01-25 11:24 | disposition home or self-care (01) ==
PROVIDERS: PCP Nurse Practitioner Women's Health; Visit Provider Nurse Practitioner Women's Health
DX: Z12.31 Encounter for screening mammogram for malignant neoplasm of breast (principal)
CPT/HCPCS: 77063; 77067

== ENCOUNTER → 2023-02-15 08:00 | Outpatient (BNVA) | payer OTHER, SELFPAY | PROVIDERS: PCP Nurse Practitioner Women's Health; Visit Provider Nurse Practitioner Women's Health | DX: R10.2 Pelvic and perineal pain (principal) | CPT/HCPCS: 76830 ==

== ENCOUNTER → 2024-06-24 09:41 | Outpatient (BNVA) | payer OTHER, SELFPAY | PROVIDERS: PCP Nurse Practitioner Women's Health; Visit Provider Nurse Practitioner Women's Health | DX: N95.1 Menopausal and female climacteric states (principal) | CPT/HCPCS: 82306; 82607; 82746; 85025 ==

== ENCOUNTER 2024-07-23 11:20 | Outpatient (CLI) | payer OTHER, SELFPAY ==
--- NOTE | 2024-07-23 11:20 | MM_ITS ---
WS: [id number] BILATERAL SCREENING DIGITAL TOMOSYNTHESIS MAMMOGRAM WITH CAD HISTORY: Z12.31 - Encounter for screening mammogram for malignant ... COMPARISON: 01/25/2023, 12/14/2020 Bilateral CC and MLO views with tomosynthesis and synthetic mammography submitted. Computer aided det ection analyzed. Breast composition: There are scattered areas of fibroglandular density. No suspicious masses, microc alcifications or architectural distortion. Stable asymmetries in each breast. No suspicious masses or calcification. MM/MM scr BI tomosynthesis [id number] IMPRESSION: BI-RADS: 2 - Benign. FOLLOW UP: 1 Year Follow-up
== END 2024-07-23 11:21 | disposition home or self-care (01) ==
LOC: MOBLMAM 11:21
PROVIDERS: PCP Nurse Practitioner Women's Health; Visit Provider Nurse Practitioner Women's Health
DX: Z12.31 Encounter for screening mammogram for malignant neoplasm of breast (principal)
CPT/HCPCS: 77063; 77067